=== PATIENT | male | born 1960 | race Caucasian/White ===

== ENCOUNTER → 2021-11-27 | Day surgery (SDC) | payer BC ==
[~2021-11-27] MED LIST: BUSPAR 10MG10 MG PO; CRESTOR10 MG PO; HYDROXYZINE HCL50 MG PO; VALSARTAN-HCTZ1 EACH PO; VITAMIN D3250 MC2 PO; XANAX0.5 MG PO; ZINC50 M2 PO
== END | disposition home or self-care (01) ==
LOC: OR 05:30
DX: K62.5 Hemorrhage of anus and rectum (principal); N40.0 Benign prostatic hyperplasia without lower urinary tract symptoms; I10 Essential (primary) hypertension; E78.5 Hyperlipidemia, unspecified; Z86.010 Personal history of colon polyps; Z79.899 Other long term (current) drug therapy; Z20.822 Contact with and (suspected) exposure to COVID-19
CPT/HCPCS: J2704; J7120